=== PATIENT | male | born 1950 | race Caucasian/White ===

== ENCOUNTER 2018-09-22 13:16 | Day surgery (SDC) | payer OTHER, BC ==
[2018-09-22] MEDS ORDERED: FENTAnyl 50 MCG/ML VIAL (14:07)
[2018-09-22] MEDS ORDERED: PROPOFOL 20 ML (14:07)
[2018-09-22] MEDS ORDERED: ONDANSETRON 4 MG INJ IV (14:30)
== END 2018-09-22 15:28 | disposition home or self-care (01) ==
LOC: GIL 13:16
DX: K64.8 Other hemorrhoids (principal)
CPT/HCPCS: 45380; 88305